=== PATIENT | female | born 1975 | race Two or more races ===

== ENCOUNTER 2020-12-15 14:50 | Emergency (ER) | payer BC ==
[~2020-12-15] VITALS: Ht 170.2 cm; Wt 79.4 kg
[2020-12-15 14:58] VITALS: BP 125/68
[2020-12-15] MEDS ORDERED: ACETAMINOPHEN 500 MG TAB PO ONE (17:15)
== END 2020-12-15 17:15 | disposition home or self-care (01) ==
LOC: ER 14:50
DX: R51.9 Headache, unspecified (principal); T50.905A Adverse effect of unspecified drugs, medicaments and biological substances, initial encounter; F41.9 Anxiety disorder, unspecified; X58.XXXA Exposure to other specified factors, initial encounter